=== PATIENT | female | born 1955 | race Caucasian/White ===

== ENCOUNTER 2016-05-13 11:05 | Inpatient (IN) | payer OTHER ==
--- NOTE | 2016-05-13 15:51 | NUR ---
1503: PT C/O CHEST PAIN, NOT RADIATING, NO N/V AND NO SKIN CHANGES. STATED THAT CHEST PAIN IS "BETWEEN SORE AND STABBING" AND SOME "PRESSURE". 1505: PT OFF BIPAP R/T INCREASE ANXIETY 1506: DR. JENKINS MADE AWARE, NEW ORDERS NOTED. 1510: NITRO 0.4MG SUBLIQ GIVEN 1515: PT STATED THAT CHEST PAIN "IS GONE". WILL CONTINUE TO MONITOR.
--- NOTE | 2016-05-17 13:55 | NUR ---
1206: DISCHARGE INSTRUCTIONS GIVEN TO PATIENT ON DX PNEUMONIA AND DIABETES, MEDICATIONS (NEW MEDS: LEVAQUIN, TAPER PREDNISONE) AND FOLLOW UP APPTS VERB UNDERSTANDING AND REPEATED BACK INSTRUCTIONS.
--- NOTE | 2016-05-17 13:59 | NUR ---
1345: PT DISCHARGED FROM FLOOR VIA WHEELCHAIR AND 02. FAMILY AT SIDE.
== END 2016-05-17 13:45 | disposition home or self-care (01) | DRG 189 ==
LOC: ICU 11:05
PROVIDERS: ADMIT Internal Medicine
DX: J96.22 Acute and chronic respiratory failure with hypercapnia (principal); J18.9 Pneumonia, unspecified organism; J44.0 Chronic obstructive pulmonary disease with (acute) lower respiratory infection; J44.1 Chronic obstructive pulmonary disease with (acute) exacerbation; E87.5 Hyperkalemia; F17.210 Nicotine dependence, cigarettes, uncomplicated; I10 Essential (primary) hypertension; I25.10 Atherosclerotic heart disease of native coronary artery without angina pectoris; E03.9 Hypothyroidism, unspecified; F41.9 Anxiety disorder, unspecified; F32.9 Major depressive disorder, single episode, unspecified; Z99.81 Dependence on supplemental oxygen; T38.0X5A Adverse effect of glucocorticoids and synthetic analogues, initial encounter; Z79.82 Long term (current) use of aspirin; Z79.899 Other long term (current) drug therapy; Z90.49 Acquired absence of other specified parts of digestive tract; Z90.710 Acquired absence of both cervix and uterus; Z83.3 Family history of diabetes mellitus; E11.65 Type 2 diabetes mellitus with hyperglycemia; Z79.84 Long term (current) use of oral hypoglycemic drugs
CPT/HCPCS: 94664; 97162-GP; 97165; J1650

== ENCOUNTER 2016-05-25 12:29 | Emergency (ER) | payer OTHER | END 2016-05-25 14:23 | disposition critical access hospital (66) | LOC: ER 12:29 | DX: J44.1 Chronic obstructive pulmonary disease with (acute) exacerbation (principal); E11.9 Type 2 diabetes mellitus without complications; E03.9 Hypothyroidism, unspecified; Z90.49 Acquired absence of other specified parts of digestive tract; Z90.710 Acquired absence of both cervix and uterus; Z79.899 Other long term (current) drug therapy; Z99.81 Dependence on supplemental oxygen | CPT/HCPCS: 36415 ==

== ENCOUNTER 2016-05-25 12:29 | Inpatient (IN) | payer OTHER ==
[~2016-05-25] VITALS: Ht 154.9 cm; Wt 48.6 kg
--- NOTE | 2016-05-27 04:06 | NUR ---
2300 BP 82/55 BOLUS OF 500ML NACL GIVEN PER ORDER ON APR. 0000 BP 96/57 0100 BP 113/59
--- NOTE | 2016-05-28 11:35 | NUR ---
REPORT TO DEEPTHI DE LA TORRE; PT TO ROOM 311 BY W/C WITH O2 ON TELE. VSS. NO DISTRESS.
--- NOTE | 2016-05-28 15:01 | NUR ---
1145: PATIENT ARRIVED TO ROOM 311 FROM ICU. ALERT AND ORIENTED X 3. DENIES COMPLAINT AT THIS TIME. 02 ON AT 2L/NC. TELE [id number]
--- NOTE | 2016-05-30 09:37 | NUR ---
0920- PT C/O SOA, O2 SATURATION 74-80 % ON 5L NC. RT CALLED AND BIPAP IN PLACE AT THIS TIME. SAT INCREASED TO 92- 94% ON BIPAP. REPORTS OF SOA HAVE IMPROVED. Gem DANIELS NOTIFIED. NEW ORDERS FOR STAT CHEST XRAY, DDIMER, EKG, TROPONIN.
== END 2016-06-02 15:55 | disposition home or self-care (01) | DRG 189 ==
LOC: ER 12:29 → ICU 14:24 → MED 14:24 → ICU 05-26 17:15 → MED 05-28 12:30
PROVIDERS: ADMIT Internal Medicine
DX: J96.21 Acute and chronic respiratory failure with hypoxia (principal); J18.9 Pneumonia, unspecified organism; A41.9 Sepsis, unspecified organism; R65.20 Severe sepsis without septic shock; J90 Pleural effusion, not elsewhere classified; J44.0 Chronic obstructive pulmonary disease with (acute) lower respiratory infection; J44.1 Chronic obstructive pulmonary disease with (acute) exacerbation; E46 Unspecified protein-calorie malnutrition; Z68.1 Body mass index [BMI] 19.9 or less, adult; Y95 Nosocomial condition; I10 Essential (primary) hypertension; E03.9 Hypothyroidism, unspecified; F41.9 Anxiety disorder, unspecified; F32.9 Major depressive disorder, single episode, unspecified; J30.9 Allergic rhinitis, unspecified; R52 Pain, unspecified; I25.10 Atherosclerotic heart disease of native coronary artery without angina pectoris; Z79.82 Long term (current) use of aspirin; Z79.899 Other long term (current) drug therapy; Z90.49 Acquired absence of other specified parts of digestive tract; Z90.710 Acquired absence of both cervix and uterus; F17.210 Nicotine dependence, cigarettes, uncomplicated; Z83.3 Family history of diabetes mellitus; E11.65 Type 2 diabetes mellitus with hyperglycemia; T38.0X5A Adverse effect of glucocorticoids and synthetic analogues, initial encounter
CPT/HCPCS: 36415; 97161-GP; J0456; J1650; J3370; J7050; Q9967